=== PATIENT | male | born 1950 | race Caucasian/White ===

== ENCOUNTER 2016-07-24 07:54 | Day surgery (SDC) | payer OTHER ==
[2016-07-23 11:44] VITALS: BMI 26.9
[2016-07-24] VITALS (11 sets, daily range): BP systolic 137–161; BP diastolic 66–77; PULSE 59–70; RESP 14–42; Ht 182.9 cm; Wt 92.8 kg
[~2016-07-24] VITALS: Ht 182.9 cm; Wt 92.8 kg
[~2016-07-24 07:54] MED LIST: AMLO-145 PO; ASPI-664 PO; DOXY50TA5 PO; LOSA50TA6 PO
[2016-07-24] MEDS ORDERED: CYCLOPENTOLATE/PHENYLEPH 2 ML OPH OPER SCH (08:00)
[2016-07-24] MEDS ORDERED: CIPROFLOXACIN 0.3% 2.5 ML OPH OPER SCH (08:00)
[2016-07-24] MEDS ORDERED: DICLOFENAC 0.1% 2.5 ML OPH OPER SCH (08:00)
[2016-07-24] MEDS ORDERED: TROPICAMIDE 1% 2 ML OPH OPER SCH (08:00)
[2016-07-24] MEDS ORDERED: PROPOFOL 20 ML ONE (09:42)
[2016-07-24] MEDS ORDERED: LIDOCAINE 2% (SDV) 5 ML INJ ONE (09:42)
[2016-07-24] MEDS ORDERED: MIDAZOLAM 1 MG/ML 2 ML INJ ONE (09:43)
[2016-07-24] MEDS ORDERED: MEPERIDINE 25 MG INJ IV PRN (10:00)
[2016-07-24] MEDS ORDERED: PROCHLORPERAZINE 10 MG INJ IV PRN (10:00)
[2016-07-24] MEDS ORDERED: LABETALOL HCL 20MG INJ IV PRN (10:00)
[2016-07-24] MEDS ORDERED: OXYCODONE/ACETAMINOPHEN (5/325) TAB PO PRN (10:00)
[2016-07-24] MEDS ORDERED: ONDANSETRON 4 MG INJ IV PRN (10:00)
[2016-07-24] MEDS ORDERED: hydrALAzine 20 MG INJ IV PRN (10:00)
[2016-07-24] MEDS ORDERED: FENTAnyl 50 MCG/ML VIAL IV PRN (10:00)
[2016-07-24] MEDS ORDERED: METOCLOPRAMIDE 10 MG INJ IV PRN (10:00)
[2016-07-24] MEDS ORDERED: DIPHENHYDRAMINE 50 MG INJ IV PRN (10:00)
[2016-07-24] MEDS ORDERED: LIDOCAINE 4% (MPF) 5 ML INJ ONE (10:03)
[2016-07-24] MEDS ORDERED: DEXAMETHASONE 4 MG/ML 1 ML INJ ONE (10:04)
[2016-07-24] MEDS ORDERED: CARBACHOL 0.01% 1.5 ML OPH INJ ONE (10:04)
[2016-07-24] MEDS ORDERED: GENTAMICIN 80 MG INJ ONE (10:04)
[2016-07-24] MEDS ORDERED: HYALURONATE/CHONDROITIN 1ML OPH INJ ONE (10:04)
[2016-07-24] MEDS ORDERED: EPINEPHrine 1 MG INJ ONE (10:04)
[2016-07-24] MEDS ORDERED: DEXAMETHASONE 4 MG/ML 1 ML INJ INJ ONE (10:15)
[2016-07-24] MEDS ORDERED: CARBACHOL 0.01% 1.5 ML OPH INJ IO ONE (10:15)
[2016-07-24] MEDS ORDERED: HYALURONATE/CHONDROITIN 1ML OPH INJ IO ONE (10:15)
[2016-07-24] MEDS ORDERED: CEFAZOLIN 1 GM INJ INJ ONE (10:15)
--- NOTE | 2016-07-24 12:24 | OPR ---
DATE OF OPERATION: 07/24/2016 PREOPERATIVE DIAGNOSIS: Cataract, right eye. POSTOPERATIVE DIAGNOSIS: Cataract, right eye. PROCEDURE PERFORMED: Cataract extraction with lens implant, right eye. SURGEON: Ayaka Esqueda MD ANESTHESIA: Local standby. ANESTHESIOLOGIST: Veronica Reilly MD PROCEDURE: The patient was brought to the operating room and placed on the table with an IV in plac e and the patient attached to an technician chemical cleaning. Oxygen was given via face mask. After some intravenous sedation was administered, local anesthesia was given using Xylocaine 2% with epinephrine, mixed with Marcaine 0.5%. This was given in a lid block and retrobulbar injection. The patient was then prepped and draped in the usual sterile manner. A wire lid speculum was inserted between the lids of the right 19.0 eye. A Superblade was used to en ter the anterior chamber at the corneoscleral limbus at the 10:30 o'clock position. A separate incis ion was made using a 3.0-mm keratome which entered the corneoscleral junction at the 12 o'clock posi tion. Through this 3-mm opening, an irrigating cystitome was introduced into the anterior chamber. T he chamber was filled with Viscoat and an anterior capsulotomy was performed. Balanced salt solution was then used for hydrodissection of the lens. A phacoemulsification handpiece was then brought in to the field and introduced into the anterior chamber. The lens nucleus was emulsified using a deep groove and cracking the nucleus into quadrants. Following this, each quadrant was aspirated and emul sified at the pupillary margin. After this was completed, the irrigation/aspiration handpiece was brought to the field, introduced i nto the posterior chamber, and the lens cortical material was removed. When this was completed, ashish tional Viscoat was injected into the anterior and posterior chambers. The 3-mm opening had its internal lips enlarged, and then the posterior chamber intraocular lens halley suring 19.0 diopters (Bausch and Lomb model LI61AO) was then injected into the posterior chamber usi ng the lens injector system. After the leading haptic was introduced into the capsular bag and the l ens optic was present in the center of the eye, the injector was removed and the trailing haptic was grasped with non-toothed forceps and introduced into the capsular fold superiorly. A Sinskey hook w as then used to rotate the intraocular lens so that the lips were oriented in the horizontal meridia n. One 10-0 nylon suture was placed across the wound. Prior to tying, the irrigation/aspiration handpiece was reintroduced into the anterior chamber to re move the Viscoat. Miochol was instilled to constrict the pupil, and then the 10-0 nylon suture was t ied. The ends were cut short and then the knot was buried. Then, 0.5 mL of dexamethasone and 0.5 mL of Ancef were injected into the sub-Tenon space in the infe rior fornix. Ciloxan drops were then placed on the surface of the eye. The speculum was removed and a patch was applied. The patient then left the operating room in satisfactory condition. Dictated By: AYAKA MENDEZ/HOLLY Conf#: [id number] DID#: [id number]
== END 2016-07-24 13:00 | disposition home or self-care (01) ==
LOC: SDS 07:54
PROVIDERS: ATTEND Ophthalmology
DX: H26.9 Unspecified cataract (principal); I10 Essential (primary) hypertension
CPT/HCPCS: 66984; J0171; J0690; J1100; J1580; J2250; V2632; Z7512; Z7610